=== PATIENT | female | born 1950 | race Caucasian/White ===

== ENCOUNTER 2019-05-20 09:13 | Outpatient (CLI) | payer MEDICARE, SELFPAY ==
--- NOTE | ~2019-05-20 | US_ITS ---
EXAMINATION: US soft tissue head and neck DATE: 05/20/2019 09:46 INDICATION: Thyroid cancer. TECHNIQUE: Multiple grayscale and Doppler ultrasound images of the neck were obtained. COMPARISON: None FINDINGS: There are changes of thyroidectomy. There is no residual thyroid tissue in the thyroidectom y bed. There is no lymphadenopathy. IMPRESSION: 1. Changes of thyroidectomy. Reviewed, dictated and finalized at location A. [employer]
== END 2019-05-20 09:14 | disposition home or self-care (01) ==
PROVIDERS: PCP Internal Medicine; Visit Provider Internal Medicine Endocrinology, Diabetes & Metabolism
DX: C73 Malignant neoplasm of thyroid gland (principal); E03.9 Hypothyroidism, unspecified
CPT/HCPCS: 76536

== ENCOUNTER 2021-06-02 10:12 | Outpatient (CLI) | payer MEDICARE, SELFPAY ==
[2021-06-02 16:41] LABS: Free T4 Free Thyroxine 1.71 ng/mL (0.78-2.19)
[2021-06-02 16:54] LABS: Thyroid Stimulating Hormone 0.541 uIU/mL (0.465-4.680)
[2021-06-05 04:06] LABS: Thyroglobulin <0.1 ng/mL (2.8-40.9); Thyroglobulin Antibodies <1 IU/mL (<=1)
== END 2021-06-02 10:13 | disposition home or self-care (01) ==
LOC: ANHWCLAB 10:15
PROVIDERS: PCP Internal Medicine; Visit Provider Internal Medicine Endocrinology, Diabetes & Metabolism
DX: C73 Malignant neoplasm of thyroid gland (principal); E03.9 Hypothyroidism, unspecified
CPT/HCPCS: 36415; 84432; 84439; 84443; 86800

== ENCOUNTER 2023-09-28 04:57 | Day surgery (SDC) | payer MEDICARE, SELFPAY ==
[2023-09-15 10:35] VITALS: BMI 31.6
[2023-09-28 09:46] VITALS: BP 131/84; PULSE 78; RESP 18; TEMP 36.2; O2SAT 98
[2023-09-28] MEDS: LACTATED RINGERS 1,000 ML 150 ML IV CONT (09:57)
--- NOTE | 2023-09-28 10:34 | WPDANESEPPF ---
Anes - Initial Pre Proc Eval Procedure: Operation Date: 09/28/23 11:00 Proposed Procedures p Colonoscopy - Eliot Alexander MD Date/Time: 09/28/23 10:34 Surgeon: Eliot Alexander MD Pre Op Diagnosis: personal hx. colon polyps Patient Data Age: 73 Gender: F Height: 1.78 m Weight: 97.3 kg Last Vital Signs Temp 97.1 F L 09/28/23 09:46 Pulse 78 09/28/23 09:46 Resp 18 09/28/23 09:46 BP 131/84 09/28/23 09:46 Pulse Ox 98 09/28/23 09:46 O2 Del Method Room Air 09/28/23 09:46 Allergies Allergy/AdvReac Type Severity Reaction Status Date / Time aspirin [From Percodan] AdvReac Nausea Verified 09/28/23 09:43 NSAIDS (Non-Steroidal AdvReac Other Verified 09/28/23 09:43 Anti-Inflamma oxycodone [From Percodan] AdvReac Nausea Verified 09/28/23 09:43 Home Medications Medication Instructions Recorded Confirmed Type acetaminophen 650 mg 650 mg PO Q8H 04/24/19 09/15/23 History tablet,extended release (Tylenol Arthritis Pain) allopurinol 300 mg tablet 300 mg PO DAILY 04/24/19 09/15/23 History amlodipine 5 mg tablet 5 mg PO DAILY 04/24/19 09/15/23 History atorvastatin 20 mg tablet 20 mg PO DAILY 04/24/19 09/15/23 History calcitriol 0.25 mcg capsule 0.25 mcg PO DAILY 04/24/19 09/15/23 History cetirizine 10 mg tablet (Zyrtec) 5 mg PO DAILY PRN Allergy Symptoms 04/24/19 09/15/23 History fluticasone propionate 50 2 spray intranasal DAILY PRN 04/24/19 09/15/23 History mcg/actuation nasal Allergy Symptoms spray,suspension lisinopril 20 mg tablet 20 mg PO BID 04/24/19 09/15/23 History ergocalciferol (vitamin D2) 50,000 unit PO MONTHLY 10/24/19 12/08/22 History unit tablet allopurinol 100 mg tablet 50 mg PO DAILY 04/28/20 09/15/23 History meclizine 25 mg tablet 25 mg PO TID PRN Vertigo 04/28/20 09/15/23 History multivitamin,[id number] 1 tablet PO DAILY 12/06/21 09/15/23 History (Complete Multivitamin tablet) levothyroxine 112 mcg tablet 112 mcg PO DAILY 90 days #90 tabs 02/28/23 09/15/23 Rx diphenhydramine HCl 25 mg capsule 25 mg PO DAILY 09/15/23 09/15/23 History (Allergy (diphenhydramine)) Patient hx anesthesia problems: none Family hx anesthesia problems: none Results Review: All pre-operative results and documents have been reviewed as part of the pre-operative evaluation. FOR[facility]LY [facility], [facility] Past Medical History Medical History (Updated 12/06/22 @ 17:11 by Mamta Mccollum [facility]) BMI greater than 30 Contact dermatitis Hypertension Lymphoma Post-menopausal Prediabetes Thyroid cancer Family History Family History Mother Family history of cataracts Hypertension Family history of arthritis Family history of congestive heart failure Family history of hearing loss Father Hypertension Family history of heart disease in male family member before age 55 Sibling Family history of kidney disease Other Diabetes mellitus Social History Social History Smoking status: Never smoker Alcohol intake: never Living arrangements: with family Spiritual care concerns: No Anes - Eval Final PreProcedure Day of Procedure 09/28/23 10:34 Patient weight: obese Heart: regular rate and rhythm Lungs: clear to auscultation Airway: Mallampati scale class II Neurological: alert and oriented Last oral intake: >/= 8 hours ASA classification: III Emergent: no Anesthetic plan: proceed Anesthesia type and monitoring: general GIVS and standard monitoring Results Review: All pre-operative results and documents have been reviewed as part of the pre-operative evaluation. Informed Consent: The patient's anesthetic plan and its attendant risks and benefits were discussed with the patient/family/POA. Questions were solicited and answers provided to the satisfaction of the patient/family/POA.
--- NOTE | 2023-09-28 10:41 | PM.HPGS ---
History of Present Illness History of Present Illness Consent: Risks, benefits, and alternatives have been discussed and questions answered. Patient agrees to proceed with procedure. Chief complaint: personal hx. colon polyps Narrative: Kwan Horvath is a 73 year old female with colon polyp 5 years ago Review of Systems Review of Systems: All systems reviewed & are unremarkable except as noted in HPI and below PMFSH Past Medical History Medical History (Updated 09/28/23 @ 10:41 by Eliot Alexander MD) BMI greater than 30 Colon polyp Contact dermatitis Hypertension Lymphoma Post-menopausal Prediabetes Thyroid cancer Family History Family History Mother Family history of cataracts Hypertension Family history of arthritis Family history of congestive heart failure Family history of hearing loss Father Hypertension Family history of heart disease in male family member before age 55 Sibling Family history of kidney disease Other Diabetes mellitus Social History Social History Smoking status: Never smoker Alcohol intake: never Living arrangements: with family Spiritual care concerns: No Meds Home Medications and Allergies Home Medications Medication Instructions Recorded Confirmed Type acetaminophen 650 mg 650 mg PO Q8H 04/24/19 09/15/23 History tablet,extended release (Tylenol Arthritis Pain) allopurinol 300 mg tablet 300 mg PO DAILY 04/24/19 09/15/23 History amlodipine 5 mg tablet 5 mg PO DAILY 04/24/19 09/15/23 History atorvastatin 20 mg tablet 20 mg PO DAILY 04/24/19 09/15/23 History calcitriol 0.25 mcg capsule 0.25 mcg PO DAILY 04/24/19 09/15/23 History cetirizine 10 mg tablet (Zyrtec) 5 mg PO DAILY PRN Allergy Symptoms 04/24/19 09/15/23 History fluticasone propionate 50 2 spray intranasal DAILY PRN 04/24/19 09/15/23 History mcg/actuation nasal Allergy Symptoms spray,suspension lisinopril 20 mg tablet 20 mg PO BID 04/24/19 09/15/23 History ergocalciferol (vitamin D2) 50,000 unit PO MONTHLY 10/24/19 12/08/22 History unit tablet allopurinol 100 mg tablet 50 mg PO DAILY 04/28/20 09/15/23 History meclizine 25 mg tablet 25 mg PO TID PRN Vertigo 04/28/20 09/15/23 History multivitamin,[id number]-[id number] 1 tablet PO DAILY 12/06/21 09/15/23 History (Complete Multivitamin tablet) levothyroxine 112 mcg tablet 112 mcg PO DAILY 90 days #90 tabs 02/28/23 09/15/23 Rx diphenhydramine HCl 25 mg capsule 25 mg PO DAILY 09/15/23 09/15/23 History (Allergy (diphenhydramine)) Allergies Allergy/AdvReac Type Severity Reaction Status Date / Time aspirin [From Percodan] AdvReac Nausea Verified 09/28/23 09:43 NSAIDS (Non-Steroidal AdvReac Other Verified 09/28/23 09:43 Anti-Inflamma oxycodone [From Percodan] AdvReac Nausea Verified 09/28/23 09:43 Vital Signs Vital Signs - 24 hr 09/28/23 09:46 Temperature 97.1 F L Pulse Rate 78 Respiratory Rate 18 Blood Pressure 131/84 Pulse Oximetry 98 Oxygen Delivery Room Air Exam Const: General: comfortable and no acute distress HENMT: Face/Nose/Sinus: Normal nares present Eyes: General: appearance normal, both eyes and all related structures Neck: Neck: no JVD Resp: Auscultation: clear to auscultation bilaterally Cardio: Rate: regular rate Rhythm: regular rhythm GI: Inspection: non-distended GI Palp: Yes Soft to palpation Skin: General skin exam: normal color Neuro: General: gait normal Speech: normal speech Extrem: General: normal to inspection Psych: Mental Status: mental status grossly normal Assessment and Plan Assessment and plan (1) Colon polyp: Code(s): K63.5 - Polyp of colon Status: Acute Assessment and Plan: colonoscopy
[2023-09-28 11:07] VITALS: BP 103/61; PULSE 68; RESP 18; O2SAT 95
[2023-09-28 11:17] VITALS: BP 111/70; PULSE 68; RESP 17; O2SAT 97
[2023-09-28 11:27] VITALS: BP 128/75; PULSE 64; RESP 16; O2SAT 98
== END 2023-09-28 11:41 | disposition home or self-care (01) ==
PROVIDERS: PCP Internal Medicine; Visit Provider Internal Medicine Gastroenterology
PROC: 0DJD8ZZ Inspection of Lower Intestinal Tract, Via Natural or Artificial Opening Endoscopic (ICD-10-PCS; CPT 45378; principal; 2023-09-28 11:00)
DX: Z12.11 Encounter for screening for malignant neoplasm of colon (principal); D12.2 Benign neoplasm of ascending colon; D12.3 Benign neoplasm of transverse colon; K57.30 Diverticulosis of large intestine without perforation or abscess without bleeding; I10 Essential (primary) hypertension; Z85.72 Personal history of non-Hodgkin lymphomas; Z85.850 Personal history of malignant neoplasm of thyroid; E66.9 Obesity, unspecified; Z68.30 Body mass index [BMI] 30.0-30.9, adult
CPT/HCPCS: 45385; 88305; J2001; J2704; J7120